=== PATIENT | female | born 2000 | race Asian ===

== ENCOUNTER 2021-12-07 17:18 | Emergency (ER) | payer SELFPAY ==
[~2021-12-07] VITALS: Ht 152.4 cm; Wt 52.2 kg
[2021-12-07 17:33] VITALS: BP 118/72
--- NOTE | 2021-12-07 17:33 | NUR ---
WALKED INTO A CLOSE GLASS DOOR,THOUGHT IT WAS OPEN HIITING HER NOSE AGAINST IT, INJURED LAST NIGHT
--- NOTE | 2021-12-07 17:51 | NUR ---
Patient discharged to home in stable condition. Written and verbal after care instructions given. Patient verbalizes understanding of instruction.
== END 2021-12-07 17:50 | disposition home or self-care (01) ==
LOC: ER 17:23
DX: R04.0 Epistaxis (principal)

== ENCOUNTER → 2025-01-08 | Emergency (ER) | payer MEDICAID ==
[~2025-01-08] VITALS: Ht 149.9 cm; Wt 59.0 kg
[~2025-01-08] MED LIST: CYCL5TAB PO; DICL100G34 TP
[2025-01-08 18:20] VITALS: TEMP 98.6
[2025-01-08 20:43] VITALS: BP 122/83; O2SAT 100
[2025-01-08 20:50] LABS: PLATELET COUNT (AUTO) 317 K/uL (150-450); RED BLOOD CELL COUNT(AUTO) 4.74 MIL/uL (4.0-5.2); RED CELL DISTRIBUTION WIDTH 13.9 % (11.5-15.0); WHITE BLOOD COUNT (AUTO) 10.5 K/uL (4.3-11.0)
[2025-01-08 21:01] LABS: CALCIUM, SERUM 9.2 mg/dL (8.5-10.1); CREATININE 0.8 mg/dL (0.6-1.3); SODIUM SERUM 135.0 mmol/L (136-145); UREA NITROGEN, BLOOD 10.0 mg/dL (7-18)
== END | disposition home or self-care (01) ==
LOC: ER 18:13
DX: M25.512 Pain in left shoulder (principal); M79.602 Pain in left arm; R53.1 Weakness
CPT/HCPCS: 36415; 71045-TC; 80048-TC; 84703-TC; 85025-TC